=== PATIENT | male | born 1960 | race Caucasian/White ===

== ENCOUNTER → 2018-01-19 07:22 | Outpatient (CLI) | payer OTHER ==
[2018-01-19 08:47] LABS: THYROID STIMULATING HORMONE 1.16 uIU/mL (0.36-3.74)
[2018-01-19 09:24] LABS: ERYTHROCYTE SEDIMENTATION RATE 6 mm/hr (0-20)
[2018-01-20 08:16] LABS: FOLATE (FOLIC ACID) - SERUM 13.6 ng/mL (>3.0)
[2018-01-22 17:11] LABS: ANA REFLEX - DIRECT Negative (Negative)
== END | disposition home or self-care (01) ==
LOC: D.LAB 01-04 08:15
PROVIDERS: Psychiatry & Neurology Neurology
DX: G62.9 Polyneuropathy, unspecified (principal)